=== PATIENT | male | born 1980 | race Caucasian/White ===

== ENCOUNTER 2020-02-23 19:34 | Emergency (ER) | payer SELFPAY ==
[2020-03-30 21:36] LABS: BASO % 0.2 % (0.0-1.0); EOS # 0.2 10^3/uL (0.0-0.5); EOS % 1.4 % (0.0-3.0); HEMATOCRIT 43.8 % (42.0-52.0); HEMOGLOBIN 15.3 g/dl (13.5-17.5); LYMPH % 21.2 % (24.0-44.0); MEAN CORPUSCULAR HEMOGLOBIN 31.5 pg (27.0-33.0); MEAN CORPUSCULAR HGB CONC 34.9 g/dl (32.0-36.5); MEAN CORPUSCULAR VOLUME 90.1 fl (80.0-96.0); MONO # 1.1 10^3/uL (0.0-0.8); MONO % 8.1 % (0.0-5.0); NEUTROPHILS # 9.7 10^3/uL (1.5-8.5); NEUTROPHILS % 68.9 % (36.0-66.0); PLATELET COUNT, AUTOMATED 266 10^3/uL (150-450); RED BLOOD COUNT 4.86 10^6/uL (4.30-6.10); WHITE BLOOD COUNT 14.1 10^3/uL (4.0-10.0)
--- NOTE | 2020-04-08 13:54 | ECGEPIP ---
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
[2020-05-04 13:35] LABS: BLOOD UREA NITROGEN 10 MG/DL (7-18); CARBON DIOXIDE LEVEL 28 MEQ/L (21-32); CHLORIDE LEVEL 110 MEQ/L (98-107); CK-MB VALUE MASS < 1.0 NG/ML (<3.6); CPK CREATINE PHOSPHOKINASE 192 U/L (39-308); CREATININE FOR GFR 1.05 MG/DL (0.70-1.30); GLOMERULAR FILTRATION RATE > 60.0 (>60); GLUCOSE, FASTING 98 MG/DL (70-100); MB/CK RELATIVE INDEX 0.52 (< OR =4); SODIUM LEVEL 143 MEQ/L (136-145); TROPONIN I < 0.02 NG/ML (< 0.10)
== END 2020-02-23 22:40 | disposition home or self-care (01) ==
LOC: M ED 19:34
DX: R07.89 Other chest pain (principal); F17.210 Nicotine dependence, cigarettes, uncomplicated; Z88.0 Allergy status to penicillin

== ENCOUNTER 2021-01-28 14:36 | Emergency (ER) | payer MEDICAID, SELFPAY ==
[~2021-01-28] VITALS: Ht 188 cm; Wt 70.5 kg
[2021-01-28] MEDS ORDERED: NS 1,000 ML IV ONE (15:40)
[2021-01-28] MEDS ORDERED: PANTOPRAZOLE 40MG VIAL (C9113 PER 1) IV ONE (15:40)
[2021-01-28 16:07] LABS: BASO % 0.2 % (0.0-1.0); EOS # 0.1 10^3/uL (0.0-0.5); EOS % 1.3 % (0.0-3.0); HEMOGLOBIN 13.7 g/dl (13.5-17.5); LYMPH # 2.3 10^3/uL (1.5-5.0); LYMPH % 23.6 % (24.0-44.0); MEAN CORPUSCULAR HEMOGLOBIN 30.6 pg (27.0-33.0); MEAN CORPUSCULAR HGB CONC 34.3 g/dl (32.0-36.5); MEAN CORPUSCULAR VOLUME 89.5 fl (80.0-96.0); MONO # 0.7 10^3/uL (0.0-0.8); MONO % 7.3 % (2.0-8.0); NEUTROPHILS # 6.7 10^3/uL (1.5-8.5); NEUTROPHILS % 67.4 % (36.0-66.0); PLATELET COUNT, AUTOMATED 254 10^3/uL (150-450); RED BLOOD COUNT 4.47 10^6/uL (4.30-6.10); WHITE BLOOD COUNT 9.9 10^3/uL (4.0-10.0)
--- NOTE | 2021-01-28 16:16 | REP ---
INDICATION: gi bleed. COMPARISON: None. TECHNIQUE: Standard helical technique without intravenous contrast or oral bowel preparatory contrast. FINDINGS: The lung bases are clear. Limited evaluation of the solid intra-organs and gallbladder show no gross abnormalities. Limited evaluation of the pancreas, adrenal glands, and kidneys show no gross abnormalities. Limited evaluation of the abdominal aorta and para-aortic regions show no gross abnormalities. Limited evaluation of the bowel loops and the mesenteries show no gross abnormalities. There is no free fluid or free air. There is no evidence of a mass or adenopathy. Bone window technique throughout the exam shows no abnormalities. IMPRESSION: Limited noncontrast enhanced examination showing no evidence of acute disease as described above. <Electronically signed by Raimundo Jacobson > 01/28/21 [id number]
[2021-01-28 16:38] LABS: ALBUMIN 3.8 GM/DL (3.2-5.2); ALT/SGPT 32 U/L (12-78); BILIRUBIN,DIRECT 0.1 MG/DL (0.0-0.2); BILIRUBIN,TOTAL 0.5 MG/DL (0.2-1.0); BLOOD UREA NITROGEN 6 MG/DL (7-18); CALCIUM LEVEL 9.1 MG/DL (8.5-10.1); CARBON DIOXIDE LEVEL 30 MEQ/L (21-32); CHLORIDE LEVEL 110 MEQ/L (98-107); CREATININE FOR GFR 0.87 MG/DL (0.70-1.30); GLOMERULAR FILTRATION RATE > 60.0 (>60); GLUCOSE, FASTING 94 MG/DL (70-100); INR 0.99; LIPASE 179 U/L (73-393); POTASSIUM SERUM 4.3 MEQ/L (3.5-5.1); PROTHROMBIN TIME 13.3 SECONDS (12.5-14.3); SODIUM LEVEL 147 MEQ/L (136-145); TOTAL PROTEIN 6.5 GM/DL (6.4-8.2)
[2021-01-28] MEDS ORDERED: ANUS25SU PR (16:51)
[2021-01-28 17:16] VITALS: BP 125/74
--- NOTE | 2021-01-28 20:16 | ECGEPIP ---
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
== END 2021-01-28 17:18 | disposition home or self-care (01) ==
LOC: M ED 14:36 → EDBD 14:36 → M ED 17:18
DX: K64.4 Residual hemorrhoidal skin tags (principal); F41.9 Anxiety disorder, unspecified; R06.02 Shortness of breath; F17.200 Nicotine dependence, unspecified, uncomplicated
CPT/HCPCS: 36415; 74176; 80048; 80076; 83690; 85025; 85610; 93005; 96361; 96374; 99284; C9113

== ENCOUNTER 2021-02-05 13:49 | Emergency (ER) | payer MEDICAID ==
[~2021-02-05] VITALS: Ht 188 cm; Wt 68.2 kg
[~2021-02-05 13:49] MED LIST: ANUS25SU PR
--- NOTE | 2021-02-05 15:05 | REP ---
INDICATION: trauma. COMPARISON: None. TECHNIQUE: Four views of the right calf are presented. FINDINGS: Four views of the tib fib demonstrate no evidence of fracture or subluxation. There is mild chondrocalcinosis at the knee.. . No opaque foreign body noted. IMPRESSION: No fracture or subluxation seen. Mild chondrocalcinosis at the knee. Otherwise negative right tib fib radiographs.. <Electronically signed by Cabrera Gotti > 02/05/21 [id number]
[2021-02-05 15:45] VITALS: BP 114/74
== END 2021-02-05 15:54 | disposition home or self-care (01) ==
LOC: M ED 13:49
DX: S80.11XA Contusion of right lower leg, initial encounter (principal); V23.4XXA Motorcycle driver injured in collision with car, pick-up truck or van in traffic accident, initial encounter; Y92.9 Unspecified place or not applicable; Y93.9 Activity, unspecified; Y99.9 Unspecified external cause status; F17.200 Nicotine dependence, unspecified, uncomplicated